=== PATIENT | female | born 1975 | race Caucasian/White ===

== ENCOUNTER → 2017-10-02 | Outpatient (CLI) | payer OTHER ==
[~2017-10-02] MED LIST: BIRTH CONTROL PILL PO; GABA100C PO; LISI-466 PO; OXYC-307 PO; SERT25TA PO; SUBC1EAC SC
== END | disposition home or self-care (01) ==
LOC: RAD 15:55
PROVIDERS: ATTEND Family Medicine
DX: M79.672 Pain in left foot (principal); M25.521 Pain in right elbow

== ENCOUNTER 2019-01-21 09:49 | Inpatient (IN) | payer OTHER ==
[~2019-01-21] VITALS: Ht 152.4 cm; Wt 53.0 kg
[2019-01-23 08:09] VITALS: BP 119/77
== END 2019-01-23 15:12 | disposition home or self-care (01) | DRG 639 ==
LOC: ED 10:53 → EDIP 14:09 → 4EST 15:50
PROVIDERS: ADMIT Internal Medicine; ATTEND Internal Medicine
DX: E10.65 Type 1 diabetes mellitus with hyperglycemia (principal); E10.40 Type 1 diabetes mellitus with diabetic neuropathy, unspecified; E86.0 Dehydration; G89.29 Other chronic pain; I10 Essential (primary) hypertension; Z79.4 Long term (current) use of insulin; Z87.891 Personal history of nicotine dependence; Z96.41 Presence of insulin pump (external) (internal); Z88.8 Allergy status to other drugs, medicaments and biological substances
CPT/HCPCS: 71045; 80048; 80053; 81003; 82010; 82040; 82803; 82962; 83036; 83690; 83735; 83930; 84100; 84439; 84443; 85025; 87040; 99285; G0378; J2405; C9113; J1815; J3475; J7120

== ENCOUNTER 2019-10-25 16:12 | Emergency (ER) | payer OTHER ==
[~2019-10-25] VITALS: Ht 152.4 cm; Wt 53.1 kg
[~2019-10-25 16:12] MED LIST changes: +FLUO20CA19 PO; +INSU100C5 SQ-INSULIN; +INSU100I11 SQ-INSULIN; +INSU100I13 SC
--- NOTE | 2019-10-25 16:59 | NUR ---
PT STATES LT FLANK PAINAND LT LOWER ABD PAIN. PT STATES HX OF DM, POORLY CONTROLLED BLOOD SUGARS. PT ASSESSED BY ERMD. URINE COLLECTED, SENT TO LAB. PT AWAITING LAB DRAW. CALL LIGHT IN REACH. PT ON MONITORS. CONT TO MONITOR.
[2019-10-25 17:10] LABS: MEAN CORPUSCULAR HEMOGLOBIN 32.6 pg (27.0-34.8); MEAN CORPUSCULAR HGB CONC 33.5 g/dL (32.4-35.8); MEAN CORPUSCULAR VOLUME 97.3 fL (80-100); MEAN PLATELET VOLUME 8.4 fL (7.4-10.4); PLATELET COUNT 215 x10^3/uL (130-400); RED BLOOD COUNT 3.97 x10^6/uL (3.82-5.3); RED CELL DISTRIBUTION WIDTH 12.5 % (9.6-15.2)
[2019-10-25 17:12] LABS: MICROSCOPIC INDICATED
[2019-10-25 17:21] LABS: ANION GAP 7 mmol/L (5-15); CALCIUM 9.2 mg/dL (8.5-10.1); CHLORIDE 100 mmol/L (98-107); CREATININE 0.92 mg/dL (0.55-1.02)
[2019-10-25 17:28] LABS: MD YES
--- NOTE | 2019-10-25 17:45 | NUR ---
ERMD AT BEDSIDE FOR RECHECK.
[2019-10-25] MEDS ORDERED: OXYcodone/APAP 10/325MG TABLET ONE (17:54)
--- NOTE | 2019-10-25 17:57 | NUR ---
PT MEDICATED FOR PAIN PER ORDERS. AWAITING D/C PAPERWORK.
[2019-10-25] MEDS ORDERED: OXYcodone/APAP 10/325MG TABLET PO ONE (18:00)
--- NOTE | 2019-10-25 18:06 | NUR ---
PT D/C'D PER ORDERS. VERBALIZED UNDERSTANDING OF D/C ORDERS.
[2019-10-25 18:07] VITALS: BP 145/88
[2019-10-25 18:15] LABS: BANDS%(MANUAL) 9 % (0-7); LYMPHS% (MANUAL) 9 % (22-44); MONOS% (MANUAL) 9 % (2-9); SEG#(MANUAL) 8.91 x10^3/uL (1.8-6.8); SEGS% (MANUAL) 73 % (42-75)
[2019-10-25 18:16] LABS: <PLATELET ESTIMATE> ADEQUATE; <PLT MORPHOLOGY> NORMAL PLT MORPH; <RBC MORPHOLOGY> NORMAL
== END 2019-10-25 18:08 | disposition home or self-care (01) ==
LOC: ED 17:40
DX: R10.9 Unspecified abdominal pain (principal); R30.0 Dysuria; I10 Essential (primary) hypertension; E11.9 Type 2 diabetes mellitus without complications; Z88.8 Allergy status to other drugs, medicaments and biological substances
CPT/HCPCS: 36415; 80048; 81001; 85025; 87086; 99283